=== PATIENT | female | born 1990 | race Caucasian/White ===

== ENCOUNTER → 2017-07-25 | Outpatient (CLI) | payer BC | LOC: MC.RAD 14:00 | DX: N63.20 Unspecified lump in the left breast, unspecified quadrant (principal) ==

== ENCOUNTER → 2018-08-12 | Outpatient (CLI) | payer BC | LOC: COL.RAD 14:03 | DX: K59.00 Constipation, unspecified (principal) | CPT/HCPCS: Q9967 ==

== ENCOUNTER 2018-08-30 06:24 | Day surgery (SDC) | payer BC ==
[~2018-08-30] VITALS: Ht 162.6 cm; Wt 84.5 kg
[2018-08-30 06:58] VITALS: BP 112/80; PULSE 88; TEMP 98.3
[2018-08-30] MEDS ORDERED: SENOKOT S 50 MG1 TAB PO (07:06)
[2018-08-30 08:10] VITALS: BP 105/60; PULSE 73; TEMP 97.8
--- NOTE | 2018-08-30 08:10 | NUR ---
Patient returned to [facility]. Alert and oriented. Vital signs obtained WNL. States her stomach hurts, and is passing gas. Mother at bediside. Requesting just water at this time. Call [facility]ne within reach, will conitnue to monitor.
[2018-08-30 08:25] VITALS: BP 98/73; PULSE 70
--- NOTE | 2018-08-30 08:25 | NUR ---
Patient ambulated to bathroom w/o difficulty. Spontaneous void and bowel movement noted. Requesting muffin at this time. Tolerating well. No nausea noted at this time. States pain has improved. Will continue to monitor.
[2018-08-30 08:40] VITALS: BP 105/67; PULSE 72
--- NOTE | 2018-08-30 09:05 | NUR ---
Discharge instructions reviewed with patient and mother. Verbalized understanding, no questions or concerns. Patient ambulated with this nurse down to [facility]. To be driven home by mother.
== END 2018-08-30 09:05 | disposition home or self-care (01) ==
LOC: SDCO 06:24
DX: R11.2 Nausea with vomiting, unspecified (principal); K59.00 Constipation, unspecified; F41.9 Anxiety disorder, unspecified; R19.7 Diarrhea, unspecified; K92.1 Melena; Z88.1 Allergy status to other antibiotic agents; Z80.0 Family history of malignant neoplasm of digestive organs
CPT/HCPCS: J2250; J2405; J2704; J3010; J7030

== ENCOUNTER → 2019-12-18 | Outpatient (CLI) | payer BC ==
[~2019-12-18] MED LIST: LEVAQUIN 5500 MG/TA1 PO; OMNICEF 300MG300 MG PO; PREDNISONE20 MG PO; PROZAC40 MG PO; SENOKOT S 50 MG1 TAB PO; TESSALON P100 MG/CAP PO
== END ==
LOC: ZCOL.LAB 18:15
DX: J02.9 Acute pharyngitis, unspecified (principal); Z20.828 Contact with and (suspected) exposure to other viral communicable diseases